=== PATIENT | female | born 1955 | race Two or more races ===

== ENCOUNTER 2024-10-18 10:26 | Inpatient (IN) | payer OTHER ==
[~2024-10-18] VITALS: Ht 160 cm; Wt 63.5 kg
[2024-10-18] MEDS ORDERED: PROPRANOLOL HCL80 M1 PO (11:03)
[2024-10-18] MEDS ORDERED: CLONAZEPAM2 MG PO (11:03)
[2024-10-18] MEDS ORDERED: BUMETANIDE2 MG PO (11:04)
[2024-10-18] MEDS ORDERED: 0.9 % SODIUM CHLORIDE 1,000 ML IV ONE (12:15)
[2024-10-18] MEDS ORDERED: ONDANSETRON HCL 2 MG/ML VIAL IV ONE (12:15)
[2024-10-18 12:50] LABS: BASO % 0.2 % (0.1-1.2); EOS # 0.01 (0.04-0.54); EOS % 0.1 % (0.7-7.0); HEMATOCRIT 37.5 % (34.1-44.9); HEMOGLOBIN 13.7 g/dL (11.2-15.7); LYMPH # 0.96 (1.18-3.74); MEAN CORPUSCULAR HEMOGLOBIN 31.9 pg (25.6-32.2); MONO % 6.2 % (4.7-12.5); NEUT % 83.2 % (34.0-71.1); PLATELET COUNT 290 K/uL (163-369); RED CELL DISTRIBUTION WIDTH 11.5 % (11.6-14.4)
[2024-10-18 13:18] LABS: URINE APPEARANCE Turbid; URINE BILIRRUBIN Negative (NEGATIVE); URINE BLOOD Moderate; URINE COLOR Yellow; URINE GLUCOSE Negative (NEGATIVE); URINE LEUKOCYTE Large; URINE NITRATE Negative; URINE PROTEIN Trace (NEGATIVE); URINE UROBILINOGEN 0.2 E.U./dl
[2024-10-18 13:21] LABS: ALBUMIN 3.3 gm/dL (3.4-5.0); BILIRUBIN TOTAL 0.92 mg/dL (0.3-1.2); CALCIUM 8.6 mg/dL (8.5-10.1); CREATININE SERUM 0.74 mg/dL (0.55-1.02); GFR 77.81; GLOBULINA 3.6 G/DL (2.4-3.5); POTASSIUM 4.25 mEq/L (3.5-5.1); TOTAL PROTEIN 6.9 gm/dL (6.4-8.2)
[2024-10-18 13:23] LABS: URINE EPITHELIAL CELLS 13.1 uL (0.0-38.8); URINE RBC 14.5 uL (0.0-20.8)
[2024-10-18 13:30] LABS: URINE KETONE 40 (NEGATIVE); URINE WBC > 5548.3 uL (0.0-23.2)
[2024-10-18 13:31] LABS: URINE BACTERIA > 9821.5 uL (0.0-1933); URINE CAST 0.14 uL (0.0-1.40)
[2024-10-18] MEDS ORDERED: CEFTRIAXONE SODIUM 1,000 MG VIAL IV ONE (16:00)
[2024-10-18] MEDS ORDERED: CEFTRIAXONE SODIUM 1,000 MG VIAL ONE (16:36)
[2024-10-18] MEDS ORDERED: CEFTRIAXONE SODIUM 2,000 MG in 0.9 % SODIUM CHLORIDE 100 ML IV SCH (19:55)
[2024-10-18] MEDS ORDERED: CLONAZEPAM 1 MG TABLET PO SCH (19:56)
[2024-10-18] MEDS ORDERED: ACETAMINOPHEN 500 MG GEL..CAP PO PRN (20:00)
[2024-10-18] MEDS ORDERED: ONDANSETRON HCL 4 MG in 0.9 % SODIUM CHLORIDE 50 ML IV PRN (20:00)
[2024-10-18] MEDS ORDERED: 0.9 % SODIUM CHLORIDE 1,000 ML IV SCH (20:00)
[2024-10-19 01:12] VITALS: BP 101/63; O2SAT 97
[2024-10-19 01:53] LABS: INR 1.01; PARTIAL THROMBOPLASTIN TIME 24.2 SECONDS (22.0-34.0)
[2024-10-19 02:24] VITALS: BP 112/65; O2SAT 96
[2024-10-19] MEDS ORDERED: PROPRANOLOL HCL 40 MG TABLET PO SCH (09:00)
[2024-10-19] MEDS ORDERED: FAMOTIDINE/PF 20 MG in 0.9 % SODIUM CHLORIDE 8 ML IV PUSH SCH (09:00)
[2024-10-19 10:46] LABS: CALCIUM 8.3 mg/dL (8.5-10.1); CREATININE SERUM 1.12 mg/dL (0.55-1.02); GFR 48.23; POTASSIUM 4.11 mEq/L (3.5-5.1); TSH 2.01 uIU/mL (0.358-3.74)
[2024-10-19 12:32] VITALS: BP 120/75; O2SAT 98
[2024-10-19 15:15] VITALS: BP 117/68; O2SAT 96
[2024-10-19] MEDS ORDERED: SODIUM CHLORIDE 0.45 % 1,000 ML IV SCH (18:00)
[2024-10-20 00:22] VITALS: BP 110/69; O2SAT 98
[2024-10-20 05:10] LABS: BASO % 0.5 % (0.1-1.2); EOS # 0.11 (0.04-0.54); EOS % 1.5 % (0.7-7.0); HEMATOCRIT 32.3 % (34.1-44.9); LYMPH # 1.71 (1.18-3.74); LYMPH % 22.7 % (19.3-53.1); MEAN CORPUSCULAR HEMOGLOBIN 31.3 pg (25.6-32.2); NEUT # 4.64 (1.56-6.13); NEUT % 61.7 % (34.0-71.1); PLATELET COUNT 265 K/uL (163-369); RED BLOOD COUNT 3.51 M/uL (3.93-5.22); RED CELL DISTRIBUTION WIDTH 12.3 % (11.6-14.4)
[2024-10-20 05:20] LABS: MONO % 13.3 % (4.7-12.5)
[2024-10-20 06:00] LABS: ALBUMIN 3.1 gm/dL (3.4-5.0); BILIRUBIN TOTAL 0.23 mg/dL (0.3-1.2); CALCIUM 8.1 mg/dL (8.5-10.1); CREATININE SERUM 0.93 mg/dL (0.55-1.02); GFR 59.78; GLOBULINA 2.9 G/DL (2.4-3.5); MAGNESIUM 1.7 mg/dL (1.8-2.4); PHOSPHOROUS 2.4 mg/dL (2.5-4.9); POTASSIUM 4.31 mEq/L (3.5-5.1)
[2024-10-20 06:02] LABS: CKMB 8.6 NG/ML (0.5-3.6)
[2024-10-20 10:18] VITALS: BP 116/70; O2SAT 99
== END 2024-10-20 16:41 | disposition left against medical advice (07) | DRG 690 ==
LOC: ER 10:26 → MEDI 20:46
PROVIDERS: Emergency Medicine; General Practice; Internal Medicine Infectious Disease; ADMIT Student in an Organized Health Care Education/Training Program; ATTEND Student in an Organized Health Care Education/Training Program
PROC: B246ZZZ Ultrasonography of Right and Left Heart (ICD-10-PCS; principal; 2024-10-19)
DX: N39.0 Urinary tract infection, site not specified (principal); E87.1 Hypo-osmolality and hyponatremia; B96.29 Other Escherichia coli [E. coli] as the cause of diseases classified elsewhere; I10 Essential (primary) hypertension